=== PATIENT | male | born 1970 | race American Indian/Alaskan Native ===

== ENCOUNTER 2017-04-07 11:19 | Emergency (ER) | payer SELFPAY ==
[2017-04-07 11:51] LABS: Basophils % (Auto) 0.4 % (0.0-1.8); Eosinophils % (Auto) 0.4 % (0.0-4.3); Hematocrit 43.6 % (35.5-45.6); Mean Corpuscular HGB Conc 34 % (32-34); Mean Corpuscular Hemoglobin 31 pg (28-32); Mean Corpuscular Volume 89 fl (84-94); Platelet Count 261 K/mm3 (140-440); Red Blood Count 4.88 M/mm3 (3.65-5.03); Red Cell Distribution Width 12.3 % (13.2-15.2); White Blood Count 7.1 K/mm3 (4.5-11.0)
[2017-04-07 12:06] LABS: BUN/Creatinine Ratio 17; Blood Urea Nitrogen 10 mg/dL (9-20); Carbon Dioxide 22 mmol/L (22-30)
[2017-04-07 12:07] LABS: Anion Gap 27 mmol/L; Calcium 9.8 mg/dL (8.4-10.2); Chloride 90.5 mmol/L (98-107); Glucose 342 mg/dL (75-100); Potassium 3.3 mmol/L (3.6-5.0); Sodium 136 mmol/L (137-145)
[2017-04-07] MEDS ORDERED: NACL 0.9% 1000 ML 1,000 ML IV ONE ×3 (13:11→16:45)
[2017-04-07] MEDS ORDERED: ZOFRAN IV ONE ×2 (13:11→15:55)
[2017-04-07] MEDS ORDERED: LOPRESSOR IV ONE ×2 (13:16→17:34)
--- NOTE | 2017-04-07 13:31 | Emergency Department Report ---
HPI - General Chief Complaint: Nausea/Vomiting/Diarrhea Time Seen by Provider: 04/07/17 13:03 - HPI HPI: This is a 46 year-old male who presents to the emergency department with complaint of nausea, vomiting and diarrhea as well as some generalized abdominal pain that has been going on since this morning. He feels like it could've been something he ate last night but he is unsure. He has a history of diabetes and hypertension. He is on Humulin 70/30, losartan and metoprolol and has not been able to take these medications prior to presentation today. He has not taken anything for his symptoms prior to presentation today. No recent travel or sick contacts at home. He used to have [employer] insurance but no longer has that insurance and therefore does not have a current primary care physician. ED Past Medical Hx - Past Medical History Hx Hypertension: Yes Hx Diabetes: Yes - Surgical History Past Surgical History?: Yes Additional Surgical History: Liver, Right leg - Social History Smoking Status: Unknown if ever smoked Substance Use Type: None - Medications Home Medications: Home Medications Medication Instructions Recorded Confirmed Last Taken Type Metoprolol [Lopressor TAB] 25 mg PO BID #60 tablet 04/07/17 Unknown Rx Ondansetron [Zofran Odt] 4 mg PO Q8H PRN #10 tab.rapdis 04/07/17 Unknown Rx ED Review of Systems ROS: Stated complaint: VOMITING, DIARRHEA, AND ABDOMINAL PAIN Other details as noted in HPI Comment: All other systems reviewed and negative Constitutional: denies: chills, fever Eyes: denies: eye pain, eye discharge, vision change ENT: denies: ear pain, throat pain Respiratory: denies: cough, shortness of breath, wheezing Cardiovascular: denies: chest pain, palpitations Gastrointestinal: abdominal pain, nausea, vomiting, diarrhea Genitourinary: denies: urgency, dysuria Musculoskeletal: denies: back pain, joint swelling, arthralgia Skin: denies: rash, lesions Neurological: denies: headache, weakness, paresthesias Physical Exam - Physical Exam Vital Signs: Vital Signs 04/07/17 04/07/17 04/07/17 11:22 12:57 13:00 Temperature 97.3 F L Pulse Rate 119 H 107 H 123 H Respiratory 22 26 H 27 H Rate Blood Pressure 170/122 195/134 O2 Sat by Pulse 97 100 100 Oximetry Physical Exam: GENERAL: The patient is well-developed well-nourished. Patient is actively vomiting. HENT: Normocephalic. Atraumatic. Patient has moist mucous membranes. EYES: Extraocular motions are intact. Pupils equal reactive to light bilaterally. NECK: Supple. Trachea is midline. CHEST/LUNGS: Clear to auscultation. There is no respiratory distress noted. HEART/CARDIOVASCULAR: Regular. There is mild tachycardia. There is no gallop rub or murmur. ABDOMEN: Abdomen is soft. Mild epigastric tenderness to palpation. No guarding or rebound tenderness. Patient has normal bowel sounds. There is no abdominal distention. SKIN: Skin is warm and dry. NEURO: The patient is awake, alert, and oriented. The patient is cooperative. The patient has no focal neurologic deficits. The patient has normal speech. MUSCULOSKELETAL: There is no tenderness or deformity. There is no limitation range of motion. There is no evidence of acute injury. ED Course Vital Signs 04/07/17 04/07/17 04/07/17 11:22 12:57 13:00 Temperature 97.3 F L Pulse Rate 119 H 107 H 123 H Respiratory 22 26 H 27 H Rate Blood Pressure 170/122 195/134 O2 Sat by Pulse 97 100 100 Oximetry ED Medical Decision Making - Lab Data Result diagrams: 04/07/17 11:36 04/07/17 11:36 - EKG Data -: EKG Interpreted by Me EKG shows normal: sinus rhythm, axis, intervals, QRS complexes (LVH), ST-T waves (nonspecific ST-T waves) Rate: tachycardia (128 bpm) - EKG Data Interpretation: other (Sinus Tach at 128, LVH, nonspecific ST-T) - Radiology Data Radiology results: image reviewed interpreted by me: Abdominal x-ray shows nonspecific nonobstructive bowel gas. - Medical Decision Making 46-year-old male presents with acute nausea vomiting and diarrhea that started this morning as well as some upper abdominal discomfort. He presented actively vomiting and tachycardic. He was given IV fluid, nausea medication and a dose of Lopressor for his hypertension and tachycardia. Upon reevaluation he is feeling much better. Labs show signs of dehydration with 80 ketones in the urine.. He was given 3 L of IV fluid. He eventually said that he is feeling back at baseline without any further nausea or abdominal discomfort. Labs also show some hyperglycemia but he does not appear to be in diabetic ketoacidosis or HHNK. There is no venous acidosis and his blood sugar came down to the mid 200s with only 4 units of insulin. Abdominal x-ray shows nonspecific nonobstructive bowel gas and was eventually read by radiology as a normal examination. The patient did have some mild tachycardia but takes metoprolol secondary to a history of tachycardia. He was given referrals for primary care. He will return to the ER with any worsening of symptoms or any acute distress. He was able to display the ability to oral rehydrate himself. - Differential Diagnosis gastroenteritis, food poisoning, colitis, gastritis Critical Care Time: No Critical care attestation.: If time is entered above; I have spent that time in minutes in the direct care of this critically ill patient, excluding procedure time. ED Disposition Clinical Impression: Hyperglycemia, Dehydration Nausea & vomiting Qualifiers: Vomiting type: unspecified Vomiting Intractability: non-intractable Qualified Code(s): R11.2 - Nausea with vomiting, unspecified Hypertension Qualifiers: Hypertension type: essential hypertension Qualified Code(s): I10 - Essential ( primary) hypertension Abdominal pain Qualifiers: Abdominal location: generalized Qualified Code(s): R10.84 - Generalized abdominal pain Disposition: - TO HOME OR SELFCARE Is pt being admited?: No Condition: Stable Instructions: Dehydration (ED), Acute Nausea and Vomiting (ED), Abdominal Pain (ED), Hypertension (ED), Diabetic Hyperglycemia (ED) Additional Instructions: Please follow-up with your primary care physician in the next few days if possible. Increase your oral rehydration. Continue with your normal diabetes regiment. Keep a blood sugar log. Try to stay away from foods that are high in salt and caffeinated products to help with your blood pressure. Keep a blood pressure log. Return to the emergency Department with any worsening of her symptoms or any acute distress. Prescriptions: Metoprolol [Lopressor TAB] 25 mg PO BID #60 tablet Ondansetron [Zofran Odt] 4 mg PO Q8H PRN #10 tab.rapdis PRN Reason: Nausea Referrals: JASMYN CORRALES MD [Primary Care Provider] - 3-5 Days RONEN DEL RIO MD [Staff Physician] - 3-5 Days SAMMI DONG MD [Staff Physician] - 3-5 Days [facility] [Outside] - 3-5 Days Time of Disposition: 18:08
[2017-04-07] MEDS ORDERED: KCL 10MEQ/100ML 10 MEQ/100 ML BAG IV SCH (14:00)
[2017-04-07] MEDS ORDERED: APRESOLINE IV ONE (14:26)
[2017-04-07] MEDS ORDERED: KCL 20 MEQ in NACL 0.9% 250ML 250 ML IV SCH (14:30)
[2017-04-07 15:30] LABS: Bilirubin,Urine NEG (Negative); Blood,Urine MOD (Negative); Ketones,Urine 80 mg/dL (Negative); Leukocyte Esterase,Urine NEG (Negative); Nitrite,Urine NEG (Negative); Urobilinogen,Urine < 2.0 mg/dL (<2.0)
[2017-04-07] MEDS ORDERED: ZOFRAN ONE (15:58)
--- NOTE | 2017-04-07 17:03 | XRay Report ---
FINAL REPORT EXAM: XR ABDOMEN 2V HISTORY: Abd pain TECHNIQUE: AP upright and supine abdominal radiographs. PRIORS: None. FINDINGS: No free air. No bowel obstruction. Surgical clips are seen in the right upper quadrant. No organomegaly and no masses. No abnormal calcifications. The osseous structures are unremarkable. IMPRESSION: No acute intra-abdominal abnormality.
[2017-04-07 18:18] VITALS: BP 140/100
== END 2017-04-07 18:34 | disposition home or self-care (01) ==
LOC: ED 11:19
DX: R11.2 Nausea with vomiting, unspecified (principal); R10.84 Generalized abdominal pain; I10 Essential (primary) hypertension; E86.0 Dehydration; E11.65 Type 2 diabetes mellitus with hyperglycemia
CPT/HCPCS: 36415; 74020; 80048; 81001; 82140; 82805; 82962; 84484; 85025; 93005; 93010; 96361; 96374; 96375; 96376; 99284; J0360; J2405; J3480; J7030; J7050; J1815

== ENCOUNTER 2020-11-18 10:46 | Emergency (ER) | payer SELFPAY ==
--- NOTE | 2020-11-18 11:07 | Emergency Department Report ---
Blank Doc - Documentation Documentation: 49-year-old male that presents with generalized abdominal pain, generalized we akness, nausea vomiting, and fatigue. Patient is diabetic and takes insulin daily. 1- This is a initial triage assessment/medical screening only. Full assessment and work-up will be completed once the patient is in proper hospital gown, ED bed and in a private room setting. This initial assessment/diagnostic orders/clinical plan/ treatment(s) is/are subject to change based on pt's health status, clinical progression and re-assessment by fellow clinical providers in the ED. Further treatment and workup at subsequent clinical providers discretion. Patient/guardians urged not to elope from ED as their condition may be serious if not clinically assessed and managed. 2-labs with UA
[2020-11-18 11:18] VITALS: BP 118/84
[2020-11-18 12:00] LABS: Basophils % (Auto) 0.5 % (0.0-1.8); Eosinophils # (Auto) 0.1 K/mm3 (0.0-0.4); Eosinophils % (Auto) 0.8 % (0.0-4.3); Hematocrit 40.1 % (35.5-45.6); Hemoglobin 13.9 gm/dl (11.8-15.2); Lymphocytes # (Auto) 1.8 K/mm3 (1.2-5.4); Lymphocytes % (Auto) 26.2 % (13.4-35.0); Mean Corpuscular HGB Conc 35 % (32-34); Mean Corpuscular Volume 87 fl (84-94); Monocytes # (Auto) 0.9 K/mm3 (0.0-0.8); Monocytes % (Auto) 12.6 % (0.0-7.3); Platelet Count 329 K/mm3 (140-440); Red Cell Distribution Width 12.7 % (13.2-15.2)
[2020-11-18 12:20] LABS: Albumin 3.4 g/dL (3.9-5); Calcium 8.6 mg/dL (8.4-10.2)
== END 2020-11-18 19:05 ==
LOC: ED 10:46
DX: R11.10 Vomiting, unspecified (principal); E11.9 Type 2 diabetes mellitus without complications; Z53.21 Procedure and treatment not carried out due to patient leaving prior to being seen by health care provider
CPT/HCPCS: 36415; 80053; 82805; 82962; 83690; 85025